=== PATIENT | female | born 1970 | race Caucasian/White ===

== ENCOUNTER → 2019-04-01 | Outpatient (CLI) | payer OTHER | END | disposition home or self-care (01) | LOC: LAB SHORT 11:44 → LAB 11:44 → LAB FUT 03-17 15:05 | DX: Z86.19 Personal history of other infectious and parasitic diseases (principal) | CPT/HCPCS: 87338 ==

== ENCOUNTER 2022-07-26 06:39 | Day surgery (SDC) | payer OTHER ==
[~2022-07-26] VITALS: Ht 157.5 cm; Wt 100.6 kg
[2022-07-26] MEDS ORDERED: ALPR.25 (07:02)
[2022-07-26] MEDS ORDERED: ALBU2.5V5 (07:02)
[2022-07-26] MEDS ORDERED: ABILIFY MYCITE2 M2 (07:03)
[2022-07-26] MEDS ORDERED: ASPI81CH (07:03)
[2022-07-26] MEDS ORDERED: IBUP100S (07:05)
[2022-07-26] MEDS ORDERED: EUTHYROX50 MCG (07:05)
[2022-07-26] MEDS ORDERED: VITAMIN B-1250 MCG (07:05)
[2022-07-26] MEDS ORDERED: PROP10 (07:06)
[2022-07-26] MEDS ORDERED: Lisinopril2.5 MG (07:06)
[2022-07-26] MEDS ORDERED: XYZAL2.5 MG/51 (07:06)
[2022-07-26] MEDS ORDERED: OMEP20ER (07:06)
[2022-07-26] MEDS ORDERED: ROSU5 (07:06)
[2022-07-26] MEDS ORDERED: ONDA4ODT (07:06)
[2022-07-26] MEDS ORDERED: VENL25 (07:07)
[2022-07-26 09:17] VITALS: BP 120/73
== END 2022-07-26 09:13 | disposition home or self-care (01) ==
LOC: ORSCSDS 06:39
PROVIDERS: Internal Medicine Gastroenterology
PROC: 0DBL8ZX Excision of Transverse Colon, Via Natural or Artificial Opening Endoscopic, Diagnostic (ICD-10-PCS; principal; 2022-07-26 08:00)
PROC: 0DBM8ZX Excision of Descending Colon, Via Natural or Artificial Opening Endoscopic, Diagnostic (ICD-10-PCS; principal; 2022-07-26 08:00)
PROC: 0DB98ZX Excision of Duodenum, Via Natural or Artificial Opening Endoscopic, Diagnostic (ICD-10-PCS; principal; 2022-07-26 08:00)
PROC: 0DB78ZX Excision of Stomach, Pylorus, Via Natural or Artificial Opening Endoscopic, Diagnostic (ICD-10-PCS; principal; 2022-07-26 08:00)
PROC: 0DBN8ZX Excision of Sigmoid Colon, Via Natural or Artificial Opening Endoscopic, Diagnostic (ICD-10-PCS; principal; 2022-07-26 08:00)
DX: R19.7 Diarrhea, unspecified (principal); K21.00 Gastro-esophageal reflux disease with esophagitis, without bleeding; K29.80 Duodenitis without bleeding; K29.70 Gastritis, unspecified, without bleeding; D12.3 Benign neoplasm of transverse colon; D12.5 Benign neoplasm of sigmoid colon; K63.5 Polyp of colon; R11.2 Nausea with vomiting, unspecified; R10.10 Upper abdominal pain, unspecified; K57.30 Diverticulosis of large intestine without perforation or abscess without bleeding; K64.0 First degree hemorrhoids; I10 Essential (primary) hypertension; G47.33 Obstructive sleep apnea (adult) (pediatric); E03.9 Hypothyroidism, unspecified; E11.9 Type 2 diabetes mellitus without complications; G40.909 Epilepsy, unspecified, not intractable, without status epilepticus; E66.01 Morbid (severe) obesity due to excess calories; Z68.41 Body mass index [BMI] 40.0-44.9, adult; Z79.899 Other long term (current) drug therapy; Z79.82 Long term (current) use of aspirin
CPT/HCPCS: 88305; 88342; J2704; J7120